=== PATIENT | male | born 1970 | race Caucasian/White ===

== ENCOUNTER 2022-03-19 13:59 | Inpatient (IN) | payer MEDICARE, MEDICAID ==
[~2022-03-19] VITALS: Ht 167.6 cm; Wt 90.1 kg
[~2022-03-19 13:59] MED LIST: AMLO-258 PO; ATOR20TA86 PO; CLAR250T39 PO; EMPA10TA3 PO; INSU3INS3 SQ; LISI-893 PO; LOSA-382 PO; METF-1211 PO; METO-558 PO
[2022-03-19] MEDS ORDERED: PIPERACILLIN/TAZO 3.375 GM/D5W 50 ML IV ONE (15:30)
[2022-03-19 15:38] LABS: COVID AG,FIA SOURCE NASOPHARYNGEAL
[2022-03-19 15:41] LABS: BASOPHILS % (AUTO) 0.8 % (0.0-2.0); EOSINOPHILS % (AUTO) 2.6 % (1.0-6.0); HEMATOCRIT 44.9 % (41-53); HEMOGLOBIN 14.7 g/dL (13.5-17.5); LYMPHOCYTES # (AUTO) 1.8 K/uL (1.0-4.8); LYMPHOCYTES % (AUTO) 25.9 % (22.0-44.0); MEAN CORPUSCULAR HGB CONC 32.8 G/dL (31.0-37.0); MEAN CORPUSCULAR VOLUME 89 fL (80-100); MONOCYTES # (AUTO) 0.6 K/uL (0.1-1.0); MONOCYTES % (AUTO) 8.8 % (2.0-9.0); NEUTROPHILS # (AUTO) 4.2 K/uL (1.8-7.7); NEUTROPHILS % (AUTO) 61.9 % (40.0-70.0); PLATELET COUNT (AUTO) 309 K/uL (150-450); RED BLOOD CELL COUNT(AUTO) 5.07 MIL/uL (4.50-5.90); RED CELL DISTRIBUTION WIDTH 16.6 % (11.5-14.5)
[2022-03-19 15:48] LABS: ANION GAP 6 mmol/L (8-16); CALCIUM, TOTAL 9.7 mg/dL (8.8-10.5); CARBON DIOXIDE 29 mmol/L (22-29); CHLORIDE 100 mmol/L (98-107); CREATININE 0.87 mg/dL (0.60-1.30); GLUCOSE,RANDOM 168 mg/dL (70-110); POTASSIUM 4.6 mmol/L (3.5-5.1); SODIUM SERUM 135 mmol/L (136-145); UREA NITROGEN, BLOOD 13 mg/dL (7-18)
[2022-03-19 15:49] LABS: GLOMERULAR FILTR. RATE CALC > 60 mL/min (>60)
[2022-03-19 15:53] LABS: ALANINE AMINOTRANSFERASE 24 U/L (12-78); ALBUMIN 3.5 g/dL (3.4-5.0); ALKALINE PHOSPHATASE 82 U/L (46-116); ASPARTATE AMINOTRANSFERASE 22 U/L (15-37); BILIRUBIN,TOTAL 0.5 mg/dL (0.1-1.0); TOTAL PROTEIN, SERUM 8.5 g/dL (6.4-8.2)
[2022-03-19 15:59] LABS: LACTIC ACID 1.6 mmol/L (0.4-2.0)
[2022-03-19] MEDS ORDERED: 0.9% SODIUM CHLORIDE 10 ML SYRINGE IVP PRN (16:45)
[2022-03-19] MEDS ORDERED: ONDANSETRON HCL 4 MG/2 ML VIAL IVP PRN ×2 (16:45→19:45)
[2022-03-19] MEDS ORDERED: ACETAMINOPHEN 325 MG TABLET PO PRN ×2 (16:45→19:45)
[2022-03-19] MEDS ORDERED: GADOTERATE MEGLUMINE 10 MMOL/20 ML VIAL IVP ONE (17:51)
[2022-03-19] MEDS ORDERED: BISACODYL 10 MG RECTAL RECTAL SUPPOSITORY PR PRN (19:45)
[2022-03-19] MEDS ORDERED: ZOLPIDEM TARTRATE 5 MG TABLET PO PRN (19:45)
[2022-03-19] MEDS ORDERED: MAGNESIUM HYDROXIDE SUSPENSION 30 ML UDCUP PO PRN (19:45)
[2022-03-19] MEDS ORDERED: ALBUTEROL SULFATE 2.5 MG/0.5 ML NEB SOLUTION NEB PRN (19:45)
[2022-03-19] MEDS ORDERED: MORPHINE SULFATE 2 MG/ML SYRINGE IVP PRN (19:45)
[2022-03-19] MEDS ORDERED: DEXTROSE 50%-WATER 25 GM/50 ML SYRINGE IVP PRN (19:45)
[2022-03-19] MEDS ORDERED: HYDROCODONE/ACETAMINOPHEN 5-325 MG TABLET PO PRN (19:45)
[2022-03-19] MEDS ORDERED: IPRATROPIUM BROMIDE 0.5 MG/2.5 ML NEB SOLUTION NEB PRN (19:45)
[2022-03-19] MEDS: LISINOPRIL 10 MG TABLET PO SCH (20:29)
[2022-03-19 20:55] VITALS: BP 144/97
[2022-03-19] MEDS ORDERED: SODIUM CHLORIDE 0.9% 500 ML IV ONE (23:05)
[2022-03-19] MEDS: ATORVASTATIN CALCIUM 20 MG TABLET PO SCH (23:14)
[2022-03-19] MEDS: HEPARIN SODIUM,PORCINE 5,000 UNITS/ML VIAL SQ SCH (23:15)
[2022-03-20] MEDS: PIPERACILLIN/TAZO 3.375 GM/D5W 50 ML IV SCH ×5 (00:01→21:48)
[2022-03-20] MEDS: LEVOFLOXACIN 750 MG/D5% WATER 150 ML IV SCH ×2 (00:06→23:10)
[2022-03-20 04:18] VITALS: BP 142/76
[2022-03-20 07:03] LABS: BASOPHILS % (AUTO) 1.1 % (0.0-2.0); EOSINOPHILS % (AUTO) 4.7 % (1.0-6.0); HEMATOCRIT 41.3 % (41-53); HEMOGLOBIN 13.8 g/dL (13.5-17.5); LYMPHOCYTES # (AUTO) 1.4 K/uL (1.0-4.8); LYMPHOCYTES % (AUTO) 20.9 % (22.0-44.0); MEAN CORPUSCULAR HEMOGLOBIN 29.4 pg (26.0-34.0); MEAN CORPUSCULAR HGB CONC 33.3 G/dL (31.0-37.0); MEAN CORPUSCULAR VOLUME 88 fL (80-100); MONOCYTES # (AUTO) 0.8 K/uL (0.1-1.0); MONOCYTES % (AUTO) 11.4 % (2.0-9.0); NEUTROPHILS # (AUTO) 4.1 K/uL (1.8-7.7); NEUTROPHILS % (AUTO) 61.9 % (40.0-70.0); PLATELET COUNT (AUTO) 278 K/uL (150-450); RED BLOOD CELL COUNT(AUTO) 4.67 MIL/uL (4.50-5.90); RED CELL DISTRIBUTION WIDTH 16.7 % (11.5-14.5)
[2022-03-20 07:27] LABS: ALANINE AMINOTRANSFERASE 16 U/L (12-78); ALBUMIN 2.8 g/dL (3.4-5.0); ALKALINE PHOSPHATASE 73 U/L (46-116); ANION GAP 8 mmol/L (8-16); ASPARTATE AMINOTRANSFERASE 16 U/L (15-37); BILIRUBIN,TOTAL 0.8 mg/dL (0.1-1.0); CALCIUM, TOTAL 9.4 mg/dL (8.8-10.5); CARBON DIOXIDE 26 mmol/L (22-29); CHLORIDE 104 mmol/L (98-107); CREATININE 0.71 mg/dL (0.60-1.30); GLUCOSE,RANDOM 142 mg/dL (70-110); SODIUM SERUM 138 mmol/L (136-145); TOTAL PROTEIN, SERUM 7.5 g/dL (6.4-8.2); UREA NITROGEN, BLOOD 11 mg/dL (7-18)
[2022-03-20 07:29] LABS: GLOMERULAR FILTR. RATE CALC > 60 mL/min (>60)
[2022-03-20 08:01] VITALS: BP 97/63
[2022-03-20] MEDS: METOPROLOL SUCCINATE 50 MG ER TABLET PO SCH (08:13)
[2022-03-20] MEDS: LISINOPRIL 10 MG TABLET PO SCH (08:13)
[2022-03-20] MEDS: PANTOPRAZOLE SODIUM 40 MG DR TABLET PO SCH (08:13)
[2022-03-20] MEDS: HEPARIN SODIUM,PORCINE 5,000 UNITS/ML VIAL SQ SCH ×3 (08:13→23:10)
[2022-03-20 08:18] VITALS: BP 127/81
[2022-03-20 15:33] VITALS: BP 131/79
[2022-03-20 16:24] LABS: C-REACTIVE PROTEIN QUANT 1.15 mg/dL (0.00-0.30)
[2022-03-20 19:47] VITALS: BP 133/79
[2022-03-20] MEDS: ATORVASTATIN CALCIUM 20 MG TABLET PO SCH (20:54)
[2022-03-20 21:12] LABS: GLUCOMETER DEV NAME(LOC) 6N.1; GLUCOSE,POINT OF CARE 159 MG/DL (70-110)
[2022-03-21] MEDS: PIPERACILLIN/TAZO 3.375 GM/D5W 50 ML IV SCH ×4 (03:44→21:41)
[2022-03-21 05:14] VITALS: BP 118/65
[2022-03-21 07:11] LABS: GLUCOMETER DEV NAME(LOC) 6N.1; GLUCOSE,POINT OF CARE 142 MG/DL (70-110)
[2022-03-21 07:26] VITALS: BP 129/83
[2022-03-21] MEDS ORDERED: RINGERS SOLUTION,LACTATED 1,000 ML IV ONE (07:31)
[2022-03-21] MEDS ORDERED: SODIUM CL IRRIG SOLN BAG 3,000 ML IRRIG ONE (07:56)
[2022-03-21] MEDS ORDERED: VANCOMYCIN HCL 1 GM/VIAL ONE (07:56)
[2022-03-21] MEDS ORDERED: BUPIVACAINE HCL/PF 0.25% 30 ML VIAL ONE (07:56)
[2022-03-21] MEDS ORDERED: LIDOCAINE/PF 1% 30 ML VIAL ONE (07:56)
[2022-03-21] MEDS: RINGERS SOLUTION,LACTATED 1,000 ML IV SCH (07:58)
[2022-03-21] MEDS: HEPARIN SODIUM,PORCINE 5,000 UNITS/ML VIAL SQ SCH ×3 (08:00→23:14)
[2022-03-21] MEDS ORDERED: PROPOFOL 1000 MG/ISO-OSM 100 ML ONE (08:22)
[2022-03-21] MEDS: METOPROLOL SUCCINATE 50 MG ER TABLET PO SCH (09:00)
[2022-03-21] MEDS: LISINOPRIL 10 MG TABLET PO SCH (09:00)
[2022-03-21 12:00] VITALS: BP 100/58
[2022-03-21] MEDS ORDERED: MIDAZOLAM HCL 2 MG/2 ML VIAL IVP ONE (12:00)
[2022-03-21] MEDS ORDERED: FentaNYL CITRATE PF 100 MCG/2 ML VIAL IVP ONE (12:00)
[2022-03-21] MEDS: PANTOPRAZOLE SODIUM 40 MG DR TABLET PO SCH (12:45)
[2022-03-21 15:26] VITALS: BP 122/78
[2022-03-21 19:38] VITALS: BP 134/74
[2022-03-21] MEDS: ATORVASTATIN CALCIUM 20 MG TABLET PO SCH (21:40)
[2022-03-21 22:21] LABS: GLUCOMETER DEV NAME(LOC) 6N.1; GLUCOSE,POINT OF CARE 154 MG/DL (70-110)
[2022-03-21] MEDS: LEVOFLOXACIN 750 MG/D5% WATER 150 ML IV SCH (23:14)
[2022-03-22 03:54] VITALS: BP 108/63
[2022-03-22] MEDS: PIPERACILLIN/TAZO 3.375 GM/D5W 50 ML IV SCH ×4 (04:15→22:06)
[2022-03-22] MEDS: RINGERS SOLUTION,LACTATED 1,000 ML IV SCH (06:15)
[2022-03-22 07:24] VITALS: BP 97/59
[2022-03-22 07:56] LABS: GLUCOMETER DEV NAME(LOC) 6N.2B; GLUCOSE,POINT OF CARE 172 MG/DL (70-110)
[2022-03-22] MEDS: PANTOPRAZOLE SODIUM 40 MG DR TABLET PO SCH (09:12)
[2022-03-22] MEDS: LISINOPRIL 10 MG TABLET PO SCH (09:12)
[2022-03-22] MEDS: METOPROLOL SUCCINATE 50 MG ER TABLET PO SCH (09:12)
[2022-03-22] MEDS: HEPARIN SODIUM,PORCINE 5,000 UNITS/ML VIAL SQ SCH ×3 (09:12→23:14)
[2022-03-22 09:24] VITALS: BP 137/85
[2022-03-22] MEDS ORDERED: DEXTROSE 50%-WATER 25 GM/50 ML SYRINGE IVP PRN (14:30)
[2022-03-22 15:24] VITALS: BP 109/66
[2022-03-22] MEDS: INSULIN LISPRO 100 UNITS/ML SQ PRN ×2 (17:45→20:38)
[2022-03-22 18:16] LABS: GLUCOMETER DEV NAME(LOC) 6N.2B; GLUCOSE,POINT OF CARE 198 MG/DL (70-110)
[2022-03-22 18:17] LABS: GLUCOMETER DEV NAME(LOC) 6N.1; GLUCOSE,POINT OF CARE 183 MG/DL (70-110)
[2022-03-22 19:50] VITALS: BP 148/90
[2022-03-22] MEDS: ATORVASTATIN CALCIUM 20 MG TABLET PO SCH (20:35)
[2022-03-22] MEDS: LEVOFLOXACIN 750 MG/D5% WATER 150 ML IV SCH (23:14)
[2022-03-23 01:31] LABS: GLUCOMETER DEV NAME(LOC) 6N.1; GLUCOSE,POINT OF CARE 184 MG/DL (70-110)
[2022-03-23] MEDS: PIPERACILLIN/TAZO 3.375 GM/D5W 50 ML IV SCH ×4 (04:45→21:47)
[2022-03-23 05:46] VITALS: BP 155/99
[2022-03-23 06:46] LABS: BASOPHILS % (AUTO) 0.4 % (0.0-2.0); EOSINOPHILS % (AUTO) 2.2 % (1.0-6.0); HEMATOCRIT 38.8 % (41-53); HEMOGLOBIN 12.8 g/dL (13.5-17.5); LYMPHOCYTES # (AUTO) 1.5 K/uL (1.0-4.8); MEAN CORPUSCULAR HEMOGLOBIN 28.9 pg (26.0-34.0); MEAN CORPUSCULAR HGB CONC 33.1 G/dL (31.0-37.0); MEAN CORPUSCULAR VOLUME 88 fL (80-100); MONOCYTES # (AUTO) 0.8 K/uL (0.1-1.0); MONOCYTES % (AUTO) 10.8 % (2.0-9.0); NEUTROPHILS # (AUTO) 5.1 K/uL (1.8-7.7); NEUTROPHILS % (AUTO) 66.6 % (40.0-70.0); PLATELET COUNT (AUTO) 272 K/uL (150-450); RED BLOOD CELL COUNT(AUTO) 4.44 MIL/uL (4.50-5.90); RED CELL DISTRIBUTION WIDTH 16.2 % (11.5-14.5)
[2022-03-23 06:57] LABS: ALANINE AMINOTRANSFERASE 14 U/L (12-78); ALBUMIN 2.8 g/dL (3.4-5.0); ALKALINE PHOSPHATASE 62 U/L (46-116); ANION GAP 7 mmol/L (8-16); ASPARTATE AMINOTRANSFERASE 14 U/L (15-37); BILIRUBIN,TOTAL 0.6 mg/dL (0.1-1.0); C-REACTIVE PROTEIN QUANT 9.04 mg/dL (0.00-0.30); CALCIUM, TOTAL 9.2 mg/dL (8.8-10.5); CARBON DIOXIDE 28 mmol/L (22-29); CHLORIDE 99 mmol/L (98-107); CREATININE 0.74 mg/dL (0.60-1.30); GLOMERULAR FILTR. RATE CALC > 60 mL/min (>60); GLUCOSE,RANDOM 143 mg/dL (70-110); POTASSIUM 3.6 mmol/L (3.5-5.1); SODIUM SERUM 134 mmol/L (136-145); TOTAL PROTEIN, SERUM 7.5 g/dL (6.4-8.2); UREA NITROGEN, BLOOD 7 mg/dL (7-18)
[2022-03-23 07:36] VITALS: BP 166/105
[2022-03-23 08:01] LABS: GLUCOMETER DEV NAME(LOC) 6N.1; GLUCOSE,POINT OF CARE 125 MG/DL (70-110)
[2022-03-23] MEDS: METOPROLOL SUCCINATE 50 MG ER TABLET PO SCH (08:09)
[2022-03-23] MEDS: RINGERS SOLUTION,LACTATED 1,000 ML IV SCH (08:09)
[2022-03-23] MEDS: PANTOPRAZOLE SODIUM 40 MG DR TABLET PO SCH (08:09)
[2022-03-23] MEDS: HEPARIN SODIUM,PORCINE 5,000 UNITS/ML VIAL SQ SCH ×3 (08:10→23:55)
[2022-03-23] MEDS: LISINOPRIL 10 MG TABLET PO SCH (08:10)
[2022-03-23] MEDS: INSULIN LISPRO 100 UNITS/ML SQ PRN ×3 (13:24→21:49)
[2022-03-23 14:26] LABS: GLUCOMETER DEV NAME(LOC) 6N.2B; GLUCOSE,POINT OF CARE 197 MG/DL (70-110)
[2022-03-23 15:23] VITALS: BP 158/101
[2022-03-23 19:28] VITALS: BP 157/99
[2022-03-23] MEDS: ATORVASTATIN CALCIUM 20 MG TABLET PO SCH (21:47)
[2022-03-23] MEDS ORDERED: SODIUM CHLORIDE 0.9% 500 ML IV ONE (22:21)
[2022-03-23 23:21] LABS: GLUCOMETER DEV NAME(LOC) 6N.1; GLUCOSE,POINT OF CARE 156 MG/DL (70-110)
[2022-03-23 23:21] LABS: GLUCOMETER DEV NAME(LOC) 6N.1; GLUCOSE,POINT OF CARE 143 MG/DL (70-110)
[2022-03-23] MEDS: LEVOFLOXACIN 750 MG/D5% WATER 150 ML IV SCH (23:55)
[2022-03-24 04:00] VITALS: BP 150/87
[2022-03-24] MEDS: PIPERACILLIN/TAZO 3.375 GM/D5W 50 ML IV SCH ×4 (04:27→22:55)
[2022-03-24 06:20] LABS: GLUCOMETER DEV NAME(LOC) 6N.1; GLUCOSE,POINT OF CARE 137 MG/DL (70-110)
[2022-03-24 07:52] VITALS: BP 151/92
[2022-03-24] MEDS: PANTOPRAZOLE SODIUM 40 MG DR TABLET PO SCH (08:29)
[2022-03-24] MEDS: LISINOPRIL 10 MG TABLET PO SCH (08:29)
[2022-03-24] MEDS: HEPARIN SODIUM,PORCINE 5,000 UNITS/ML VIAL SQ SCH ×3 (08:29→23:57)
[2022-03-24] MEDS: METOPROLOL SUCCINATE 50 MG ER TABLET PO SCH (08:29)
[2022-03-24] MEDS: INSULIN LISPRO 100 UNITS/ML SQ PRN ×3 (11:37→20:40)
[2022-03-24 12:36] LABS: GLUCOMETER DEV NAME(LOC) 6N.2B; GLUCOSE,POINT OF CARE 180 MG/DL (70-110)
[2022-03-24 15:18] VITALS: BP 153/100
[2022-03-24 19:36] LABS: GLUCOMETER DEV NAME(LOC) 6N.1; GLUCOSE,POINT OF CARE 167 MG/DL (70-110)
[2022-03-24 19:47] VITALS: BP 140/75
[2022-03-24] MEDS: ATORVASTATIN CALCIUM 20 MG TABLET PO SCH (20:29)
[2022-03-24] MEDS: LEVOFLOXACIN 750 MG/D5% WATER 150 ML IV SCH (23:57)
[2022-03-25 00:26] LABS: GLUCOMETER DEV NAME(LOC) 6N.2B; GLUCOSE,POINT OF CARE 205 MG/DL (70-110)
[2022-03-25 03:59] VITALS: BP 151/77
[2022-03-25] MEDS: PIPERACILLIN/TAZO 3.375 GM/D5W 50 ML IV SCH ×4 (04:06→22:05)
[2022-03-25] MEDS: INSULIN LISPRO 100 UNITS/ML SQ PRN ×4 (05:47→22:04)
[2022-03-25 08:21] VITALS: BP 127/82
[2022-03-25] MEDS: HEPARIN SODIUM,PORCINE 5,000 UNITS/ML VIAL SQ SCH ×3 (08:50→23:49)
[2022-03-25] MEDS: LISINOPRIL 10 MG TABLET PO SCH (08:53)
[2022-03-25] MEDS: PANTOPRAZOLE SODIUM 40 MG DR TABLET PO SCH (08:53)
[2022-03-25] MEDS: METOPROLOL SUCCINATE 50 MG ER TABLET PO SCH (08:53)
[2022-03-25 09:11] LABS: GLUCOMETER DEV NAME(LOC) 6N.2B; GLUCOSE,POINT OF CARE 159 MG/DL (70-110)
[2022-03-25 14:21] LABS: GLUCOMETER DEV NAME(LOC) 6N.2B; GLUCOSE,POINT OF CARE 176 MG/DL (70-110)
[2022-03-25 15:58] VITALS: BP 103/72
[2022-03-25 19:50] VITALS: BP 140/62
[2022-03-25] MEDS: ATORVASTATIN CALCIUM 20 MG TABLET PO SCH (22:02)
[2022-03-25 22:31] LABS: GLUCOMETER DEV NAME(LOC) 6N.1; GLUCOSE,POINT OF CARE 164 MG/DL (70-110)
[2022-03-25] MEDS: LEVOFLOXACIN 750 MG/D5% WATER 150 ML IV SCH (23:49)
[2022-03-26 04:15] VITALS: BP 98/60
[2022-03-26] MEDS: PIPERACILLIN/TAZO 3.375 GM/D5W 50 ML IV SCH ×4 (04:41→21:03)
[2022-03-26 05:56] LABS: GLUCOMETER DEV NAME(LOC) 6N.2B; GLUCOSE,POINT OF CARE 186 MG/DL (70-110)
[2022-03-26] MEDS: INSULIN LISPRO 100 UNITS/ML SQ PRN ×4 (06:13→21:07)
[2022-03-26 06:56] LABS: GLUCOMETER DEV NAME(LOC) 6N.2B; GLUCOSE,POINT OF CARE 205 MG/DL (70-110)
[2022-03-26 07:08] LABS: BASOPHILS % (AUTO) 1.3 % (0.0-2.0); EOSINOPHILS % (AUTO) 5.5 % (1.0-6.0); HEMATOCRIT 39.7 % (41-53); HEMOGLOBIN 13.3 g/dL (13.5-17.5); LYMPHOCYTES % (AUTO) 30.8 % (22.0-44.0); MEAN CORPUSCULAR HEMOGLOBIN 29.2 pg (26.0-34.0); MEAN CORPUSCULAR HGB CONC 33.5 G/dL (31.0-37.0); MEAN CORPUSCULAR VOLUME 87 fL (80-100); MONOCYTES # (AUTO) 0.5 K/uL (0.1-1.0); MONOCYTES % (AUTO) 7.7 % (2.0-9.0); NEUTROPHILS # (AUTO) 3.6 K/uL (1.8-7.7); NEUTROPHILS % (AUTO) 54.7 % (40.0-70.0); PLATELET COUNT (AUTO) 316 K/uL (150-450); RED BLOOD CELL COUNT(AUTO) 4.56 MIL/uL (4.50-5.90); RED CELL DISTRIBUTION WIDTH 16.8 % (11.5-14.5)
[2022-03-26 07:18] VITALS: BP 94/57
[2022-03-26 07:32] LABS: ALANINE AMINOTRANSFERASE 9 U/L (12-78); ALBUMIN 2.5 g/dL (3.4-5.0); ALKALINE PHOSPHATASE 54 U/L (46-116); ANION GAP 8 mmol/L (8-16); ASPARTATE AMINOTRANSFERASE 13 U/L (15-37); BILIRUBIN,TOTAL 0.4 mg/dL (0.1-1.0); C-REACTIVE PROTEIN QUANT 2.47 mg/dL (0.00-0.30); CALCIUM, TOTAL 9.5 mg/dL (8.8-10.5); CARBON DIOXIDE 25 mmol/L (22-29); CHLORIDE 100 mmol/L (98-107); GLUCOSE,RANDOM 183 mg/dL (70-110); SODIUM SERUM 133 mmol/L (136-145); TOTAL PROTEIN, SERUM 7.4 g/dL (6.4-8.2); UREA NITROGEN, BLOOD 8 mg/dL (7-18)
[2022-03-26 07:35] LABS: GLOMERULAR FILTR. RATE CALC > 60 mL/min (>60)
[2022-03-26] MEDS: HEPARIN SODIUM,PORCINE 5,000 UNITS/ML VIAL SQ SCH ×3 (08:24→23:57)
[2022-03-26] MEDS: PANTOPRAZOLE SODIUM 40 MG DR TABLET PO SCH (08:25)
[2022-03-26] MEDS: METOPROLOL SUCCINATE 50 MG ER TABLET PO SCH (08:27)
[2022-03-26] MEDS: LISINOPRIL 10 MG TABLET PO SCH (08:28)
[2022-03-26 12:16] LABS: GLUCOMETER DEV NAME(LOC) 6N.1; GLUCOSE,POINT OF CARE 241 MG/DL (70-110)
[2022-03-26 15:55] VITALS: BP 138/56
[2022-03-26 18:01] LABS: GLUCOMETER DEV NAME(LOC) 6N.1; GLUCOSE,POINT OF CARE 150 MG/DL (70-110)
[2022-03-26 19:38] VITALS: BP 118/68
[2022-03-26] MEDS: ATORVASTATIN CALCIUM 20 MG TABLET PO SCH (21:02)
[2022-03-27 03:21] LABS: GLUCOMETER DEV NAME(LOC) 6N.2B; GLUCOSE,POINT OF CARE 183 MG/DL (70-110)
[2022-03-27 04:26] VITALS: BP 113/67
[2022-03-27] MEDS: PIPERACILLIN/TAZO 3.375 GM/D5W 50 ML IV SCH ×4 (05:13→21:11)
[2022-03-27] MEDS: INSULIN LISPRO 100 UNITS/ML SQ PRN ×4 (05:20→21:18)
[2022-03-27 06:17] LABS: GLUCOMETER DEV NAME(LOC) 6N.1; GLUCOSE,POINT OF CARE 180 MG/DL (70-110)
[2022-03-27 07:33] VITALS: BP 127/82
[2022-03-27] MEDS: PANTOPRAZOLE SODIUM 40 MG DR TABLET PO SCH (08:33)
[2022-03-27] MEDS: LISINOPRIL 10 MG TABLET PO SCH (08:33)
[2022-03-27] MEDS: LEVOFLOXACIN 750 MG TABLET PO SCH (08:33)
[2022-03-27] MEDS: METOPROLOL SUCCINATE 50 MG ER TABLET PO SCH (08:33)
[2022-03-27] MEDS: HEPARIN SODIUM,PORCINE 5,000 UNITS/ML VIAL SQ SCH ×3 (08:33→23:49)
[2022-03-27 12:01] LABS: GLUCOMETER DEV NAME(LOC) 6N.2B; GLUCOSE,POINT OF CARE 239 MG/DL (70-110)
[2022-03-27 16:15] VITALS: BP 111/73
[2022-03-27] MEDS ORDERED: SODIUM CHLORIDE 0.9% 500 ML IV ONE (16:20)
[2022-03-27 17:22] LABS: GLUCOMETER DEV NAME(LOC) 6N.1; GLUCOSE,POINT OF CARE 172 MG/DL (70-110)
[2022-03-27 19:25] VITALS: BP 123/68
[2022-03-27] MEDS: LACTOBAC ACID/BULG/BIFID/THERM TABLET PO SCH (21:11)
[2022-03-27] MEDS: ATORVASTATIN CALCIUM 20 MG TABLET PO SCH (21:11)
[2022-03-27 21:46] LABS: GLUCOMETER DEV NAME(LOC) 6N.2B; GLUCOSE,POINT OF CARE 189 MG/DL (70-110)
[2022-03-28] MEDS: PIPERACILLIN/TAZO 3.375 GM/D5W 50 ML IV SCH ×2 (04:54→09:09)
[2022-03-28] MEDS: INSULIN LISPRO 100 UNITS/ML SQ PRN ×4 (04:59→20:38)
[2022-03-28 05:20] VITALS: BP 111/69
[2022-03-28 06:26] LABS: GLUCOMETER DEV NAME(LOC) 6N.2B; GLUCOSE,POINT OF CARE 170 MG/DL (70-110)
[2022-03-28 08:00] VITALS: BP 111/69
[2022-03-28] MEDS: HEPARIN SODIUM,PORCINE 5,000 UNITS/ML VIAL SQ SCH ×3 (08:02→23:56)
[2022-03-28] MEDS: LISINOPRIL 10 MG TABLET PO SCH (08:02)
[2022-03-28] MEDS: PANTOPRAZOLE SODIUM 40 MG DR TABLET PO SCH (08:02)
[2022-03-28] MEDS: LACTOBAC ACID/BULG/BIFID/THERM TABLET PO SCH ×2 (08:02→20:34)
[2022-03-28] MEDS: LEVOFLOXACIN 750 MG TABLET PO SCH (08:02)
[2022-03-28] MEDS: METOPROLOL SUCCINATE 50 MG ER TABLET PO SCH (08:02)
[2022-03-28 15:08] VITALS: BP 140/89
[2022-03-28] MEDS: IMIPENEM/CILASTATIN SODIUM 1,000 MG in SODIUM CHLORIDE 0.9% 250 ML IV SCH ×2 (15:27→23:56)
[2022-03-28 15:31] LABS: GLUCOMETER DEV NAME(LOC) 6N.2B; GLUCOSE,POINT OF CARE 174 MG/DL (70-110)
[2022-03-28] MEDS ORDERED: ATOR20TA86 PO (16:50)
[2022-03-28] MEDS ORDERED: HEPA500018 SQ (16:51)
[2022-03-28] MEDS ORDERED: [UNRECOGNIZED DRUG - CODE] IV (16:51)
[2022-03-28] MEDS ORDERED: ACID1TAB13 PO (16:52)
[2022-03-28] MEDS ORDERED: PANT-31 PO (16:53)
[2022-03-28] MEDS ORDERED: ACET-2247 PO (16:55)
[2022-03-28] MEDS ORDERED: AUD NEB (16:55)
[2022-03-28] MEDS ORDERED: BISA-151 PO (16:56)
[2022-03-28] MEDS ORDERED: HYDR-4723 PO (16:56)
[2022-03-28] MEDS ORDERED: MAGN-169 PO (16:57)
[2022-03-28] MEDS ORDERED: INSU100V SQ (16:57)
[2022-03-28] MEDS: ATORVASTATIN CALCIUM 20 MG TABLET PO SCH (20:34)
[2022-03-29 00:41] LABS: GLUCOMETER DEV NAME(LOC) 6N.1; GLUCOSE,POINT OF CARE 166 MG/DL (70-110)
[2022-03-29 00:42] LABS: GLUCOMETER DEV NAME(LOC) 6N.2B; GLUCOSE,POINT OF CARE 176 MG/DL (70-110)
[2022-03-29] MEDS: INSULIN LISPRO 100 UNITS/ML SQ PRN ×2 (05:46→11:57)
[2022-03-29 06:22] LABS: BASOPHILS % (AUTO) 0.7 % (0.0-2.0); EOSINOPHILS % (AUTO) 3.5 % (1.0-6.0); HEMATOCRIT 39.7 % (41-53); HEMOGLOBIN 13.3 g/dL (13.5-17.5); LYMPHOCYTES # (AUTO) 2.4 K/uL (1.0-4.8); MEAN CORPUSCULAR HEMOGLOBIN 29.4 pg (26.0-34.0); MEAN CORPUSCULAR HGB CONC 33.4 G/dL (31.0-37.0); MEAN CORPUSCULAR VOLUME 88 fL (80-100); MONOCYTES # (AUTO) 0.9 K/uL (0.1-1.0); MONOCYTES % (AUTO) 9.4 % (2.0-9.0); NEUTROPHILS # (AUTO) 5.5 K/uL (1.8-7.7); NEUTROPHILS % (AUTO) 60.4 % (40.0-70.0); PLATELET COUNT (AUTO) 315 K/uL (150-450); RED BLOOD CELL COUNT(AUTO) 4.52 MIL/uL (4.50-5.90); RED CELL DISTRIBUTION WIDTH 17.1 % (11.5-14.5)
[2022-03-29 06:45] LABS: ALANINE AMINOTRANSFERASE 9 U/L (12-78); ALBUMIN 2.7 g/dL (3.4-5.0); ALKALINE PHOSPHATASE 51 U/L (46-116); ANION GAP 7 mmol/L (8-16); ASPARTATE AMINOTRANSFERASE 14 U/L (15-37); BILIRUBIN,TOTAL 0.4 mg/dL (0.1-1.0); C-REACTIVE PROTEIN QUANT 0.98 mg/dL (0.00-0.30); CALCIUM, TOTAL 9.3 mg/dL (8.8-10.5); CARBON DIOXIDE 28 mmol/L (22-29); CHLORIDE 101 mmol/L (98-107); CREATININE 0.91 mg/dL (0.60-1.30); GLUCOSE,RANDOM 150 mg/dL (70-110); POTASSIUM 3.8 mmol/L (3.5-5.1); SODIUM SERUM 136 mmol/L (136-145); TOTAL PROTEIN, SERUM 7.3 g/dL (6.4-8.2); UREA NITROGEN, BLOOD 12 mg/dL (7-18)
[2022-03-29 06:48] LABS: GLOMERULAR FILTR. RATE CALC > 60 mL/min (>60)
[2022-03-29 07:11] LABS: GLUCOMETER DEV NAME(LOC) 6N.1; GLUCOSE,POINT OF CARE 170 MG/DL (70-110)
[2022-03-29 07:38] VITALS: BP 105/57
[2022-03-29] MEDS: METOPROLOL SUCCINATE 50 MG ER TABLET PO SCH (09:00)
[2022-03-29] MEDS: IMIPENEM/CILASTATIN SODIUM 1,000 MG in SODIUM CHLORIDE 0.9% 250 ML IV SCH ×2 (09:15→15:41)
[2022-03-29] MEDS: PANTOPRAZOLE SODIUM 40 MG DR TABLET PO SCH (09:19)
[2022-03-29] MEDS: LACTOBAC ACID/BULG/BIFID/THERM TABLET PO SCH (09:19)
[2022-03-29] MEDS: LISINOPRIL 10 MG TABLET PO SCH (09:19)
[2022-03-29] MEDS: HEPARIN SODIUM,PORCINE 5,000 UNITS/ML VIAL SQ SCH ×2 (09:20→15:41)
[2022-03-29 12:37] LABS: GLUCOMETER DEV NAME(LOC) 6N.1; GLUCOSE,POINT OF CARE 166 MG/DL (70-110)
[2022-03-29 15:33] VITALS: BP 123/63
== END 2022-03-29 18:36 | disposition left against medical advice (07) | DRG 240 ==
LOC: EMS 14:03 → 6S 20:47
PROVIDERS: ADMIT Hospitalist; ATTEND Hospitalist
PROC: 0Y6M0ZB Detachment at Right Foot, Partial 2nd Ray, Open Approach (ICD-10-PCS; 2022-03-21)
PROC: 0Y6M0ZC Detachment at Right Foot, Partial 3rd Ray, Open Approach (ICD-10-PCS; 2022-03-21)
PROC: 0Y6M0ZD Detachment at Right Foot, Partial 4th Ray, Open Approach (ICD-10-PCS; 2022-03-21)
PROC: 0Y6M0ZF Detachment at Right Foot, Partial 5th Ray, Open Approach (ICD-10-PCS; 2022-03-21)
PROC: 0Y6M0Z9 Detachment at Right Foot, Partial 1st Ray, Open Approach (ICD-10-PCS; principal; 2022-03-21 08:35)
DX: E11.52 Type 2 diabetes mellitus with diabetic peripheral angiopathy with gangrene (principal); M86.8X7 Other osteomyelitis, ankle and foot; Z16.24 Resistance to multiple antibiotics; Z79.899 Other long term (current) drug therapy; E11.69 Type 2 diabetes mellitus with other specified complication; E11.40 Type 2 diabetes mellitus with diabetic neuropathy, unspecified; E11.319 Type 2 diabetes mellitus with unspecified diabetic retinopathy without macular edema; Z20.822 Contact with and (suspected) exposure to COVID-19; I11.0 Hypertensive heart disease with heart failure; I50.9 Heart failure, unspecified; Z53.29 Procedure and treatment not carried out because of patient's decision for other reasons; F17.210 Nicotine dependence, cigarettes, uncomplicated; E11.51 Type 2 diabetes mellitus with diabetic peripheral angiopathy without gangrene; Z89.411 Acquired absence of right great toe; Z91.199 Patient's noncompliance with other medical treatment and regimen due to unspecified reason; Z89.512 Acquired absence of left leg below knee
CPT/HCPCS: 36245; 36569; 71045; 73720; 76937; 80053; 82962; 83605; 85025; 86140; 87040; 87070; 87081; 87205; 88305; 88307; 88311; 97162; 97530; 99285; J0743; J1644; J1956; J2250; J2543; J2704; J3010; J3370; J3490; J7040; J7050; J7120; Q9967; 36415-L1; 36415-TC; Z7610

== ENCOUNTER 2024-12-12 13:29 | Emergency (ER) | payer MEDICARE, MEDICAID ==
[~2024-12-12] VITALS: Ht 182.9 cm; Wt 77.0 kg
[~2024-12-12 13:29] MED LIST changes: +ACET-2247 PO; +ACID1TAB13 PO; +ALBU2.5V39 NEB; -AMLO-258 PO; +ATOR20TA PO; -ATOR20TA86 PO; +BISA-151 PO; -CLAR250T39 PO; -EMPA10TA3 PO; +HEPA500018 SQ; +HYDR-4062 PO; +INSU100V SQ; -INSU3INS3 SQ; -LOSA-382 PO; +MAGN-169 PO; -METF-1211 PO; +METO-325 PO; -METO-558 PO; +PANT-31 PO; +[UNRECOGNIZED DRUG - CODE] IV
[2024-12-12 14:27] VITALS: BP 132/84; PULSE 50; RESP 20; TEMP 98; O2SAT 99
[2024-12-12] MEDS ORDERED: INSU3INS3 SQ (14:33)
[2024-12-12] MEDS ORDERED: ATOR40TA71 PO (14:33)
[2024-12-12] MEDS ORDERED: SERT-162 PO (14:33)
[2024-12-12] MEDS ORDERED: TAMS0.4C94 PO (14:33)
[2024-12-12] MEDS ORDERED: METO-408 PO (14:33)
[2024-12-12] MEDS ORDERED: BACL10TA PO (14:33)
[2024-12-12] MEDS ORDERED: INSU100I15 SQ (14:33)
[2024-12-12 14:59] LABS: PLATELET COUNT (AUTO) 248 K/uL (150-450); RED BLOOD CELL COUNT(AUTO) 4.84 MIL/uL (4.50-5.90); RED CELL DISTRIBUTION WIDTH 18.7 % (11.5-14.5); WHITE BLOOD COUNT (AUTO) 7.9 K/uL (4.5-11.0)
[2024-12-12 15:11] LABS: CALCIUM, TOTAL 8.6 mg/dL (8.8-10.5); CREATININE 0.77 mg/dL (0.60-1.30); GLOMERULAR FILTR. RATE CALC > 60 mL/min (>60); GLUCOSE,RANDOM 158 mg/dL (70-110); SODIUM SERUM 136 mmol/L (136-145); UREA NITROGEN, BLOOD 17 mg/dL (7-18)
[2024-12-12 15:15] LABS: COVID AG,FIA SOURCE NASAL SWAB
[2024-12-12 15:31] LABS: SARS-COV2 (COVID) ANTIGEN,FIA Negative (Negative)
== END 2024-12-12 16:34 | disposition home or self-care (01) ==
LOC: EMS 13:29
DX: E11.9 Type 2 diabetes mellitus without complications (principal); Z89.512 Acquired absence of left leg below knee; I11.0 Hypertensive heart disease with heart failure; F17.210 Nicotine dependence, cigarettes, uncomplicated; I50.9 Heart failure, unspecified; Z98.890 Other specified postprocedural states; Z79.4 Long term (current) use of insulin; Z79.899 Other long term (current) drug therapy; Z20.822 Contact with and (suspected) exposure to COVID-19
CPT/HCPCS: 99283; 87426; 80048; 85025; 36415; G0480